=== PATIENT | female | born 1955 | race Caucasian/White ===

== ENCOUNTER 2023-08-04 17:15 | Emergency (ER) | payer MEDICAID, OTHER ==
[~2023-08-04] VITALS: Ht 157.5 cm; Wt 138.0 kg
[~2023-08-04 17:15] MED LIST: AMOX-424 MT; IBUP-2030 MT; TRAM50TA3 MT
[2023-08-04 17:20] VITALS: TEMP 98.6; O2SAT 100
[2023-08-04] MEDS ORDERED: KETOROLAC 15MG/ML VIAL IV ONE ×2 (18:00→21:30)
[2023-08-04 20:30] LABS: BASOPHILS % 0.5 % (0.0-2.0); HEMATOCRIT. 31.1 % (36.0-48.0); HEMOGLOBIN. 10.2 g/dL (12.0-16.0); LYMPHOCYTES % 33.5 % (20.0-50.0); MEAN CORPUSCULAR HEMOGLOBIN 30.8 pg (28.0-32.0); MEAN CORPUSCULAR HGB CONC 32.9 g/dL (31.0-37.0); MEAN CORPUSCULAR VOLUME 93.7 fL (81.0-99.0); MEAN PLATELET VOLUME 7.1 fl (7.4-10.4); MONOCYTES % 6.7 % (2.0-8.0); NEUTROPHILS % 56.3 % (40.0-76.0); PLATELET 227 x1000/uL (130-400); RED BLOOD CELL COUNT 3.32 mill/uL (4.2-5.4); RED CELL DISTRIBUTION WIDTH 14.5 % (11.6-14.6); WHITE BLOOD COUNT 3.6 x1000/uL (4.5-11.0)
[2023-08-04 20:44] LABS: ALANINE AMINOTRANSFERASE 12 IU/L (10-49); ALBUMIN 3.1 g/dL (3.2-4.8); ASPARTATE AMINOTRANSFERASE 23 IU/L (<34); BILIRUBIN TOTAL 0.4 mg/dL (0.1-1.0); CALCIUM 8.6 mg/dL (8.7-10.4); CARBON DIOXIDE 28 mEq/L (21-32); CHLORIDE 107 mEq/L (98-107); CREATININE 0.4 mg/dL (0.6-1.0); GLUCOSE 97 mg/dL (70-105); POTASSIUM 4.2 mEq/L (3.5-5.1); PROTEIN TOTAL 6.7 g/dL (6.0-8.3); SODIUM 140 mEq/L (136-145); UREA NITROGEN BLOOD 9 mg/dL (9-23)
[2023-08-04] MEDS ORDERED: IBUP-2028 MT (21:20)
[2023-08-04] MEDS ORDERED: KETOROLAC 15MG/ML VIAL IV NR (21:30)
[2023-08-05] MEDS ORDERED: LIDOCAINE 5% PATCH TOP SCH (03:15)
[2023-08-05] MEDS ORDERED: ACETAMINOPHEN 325MG TABLET PO NR (03:15)
[2023-08-05] MEDS ORDERED: NYST15PO4 TP (14:45)
[2023-08-05] MEDS ORDERED: KETOROLAC 30MG/ML VIAL IV NR (14:45)
[2023-08-05] MEDS ORDERED: MORPHINE SULFATE 4 MG/ML CPJ (NOT FOR IM USE) IV NR (14:45)
[2023-08-05 20:27] VITALS: BP 139/65; PULSE 95; RESP 18
== END 2023-08-05 20:50 | disposition home or self-care (01) ==
LOC: ER 17:15
DX: M79.604 Pain in right leg (principal); M79.605 Pain in left leg; E11.9 Type 2 diabetes mellitus without complications; I10 Essential (primary) hypertension
CPT/HCPCS: 80053; 85025; 85610; 85730; 36415; 93970; 96374; 96376 ×2; 99285; 96375; J1885 ×2; Z7610 ×4; J2270